=== PATIENT | female | born 1950 | race Caucasian/White ===

== ENCOUNTER 2024-04-12 10:56 | Outpatient (CLI) | payer MEDICARE, BC | END 2024-04-12 23:59 | disposition home or self-care (01) | LOC: RAD 10:56 | PROVIDERS: ATTEND Orthopaedic Surgery | DX: M25.861 Other specified joint disorders, right knee (principal); M25.862 Other specified joint disorders, left knee; M25.762 Osteophyte, left knee; M25.761 Osteophyte, right knee; M17.0 Bilateral primary osteoarthritis of knee; Z96.659 Presence of unspecified artificial knee joint | CPT/HCPCS: 73565 ==

== ENCOUNTER 2024-08-04 12:18 | Outpatient (CLI) | payer MEDICARE, BC | END 2024-08-04 23:59 | disposition home or self-care (01) | LOC: RAD 12:18 | PROVIDERS: ATTEND Orthopaedic Surgery | DX: M17.0 Bilateral primary osteoarthritis of knee (principal); Z96.659 Presence of unspecified artificial knee joint; Z96.652 Presence of left artificial knee joint; Z98.890 Other specified postprocedural states | CPT/HCPCS: 73564 ==